=== PATIENT | female | born 1990 | race Caucasian/White ===

== ENCOUNTER 2020-03-22 10:10 | Outpatient (CLI) | payer OTHER, SELFPAY ==
[2020-03-22 10:30] VITALS: BMI 26.1
[2020-03-22 10:42] VITALS: BP 110/70; PULSE 88
[2020-03-22 10:57] VITALS: BP 0/0; BP 115/71; PULSE 91
[2020-03-22 11:00] VITALS: BP 115/71; RESP 18
== END 2020-03-22 11:05 | disposition home or self-care (01) ==
LOC: OPOB 10:20 → OBGYN 10:26
PROVIDERS: PCP Family Medicine; Visit Provider Family Medicine
DX: O26.899 Other specified pregnancy related conditions, unspecified trimester (principal); Z3A.00 Weeks of gestation of pregnancy not specified; R10.9 Unspecified abdominal pain
CPT/HCPCS: 99211

== ENCOUNTER 2020-03-23 01:20 | Inpatient (IN) | payer OTHER, SELFPAY ==
[2020-03-22 23:45] VITALS: TEMP 36.9
[2020-03-22 23:46] VITALS: BP 152/95; PULSE 92
[2020-03-22 23:49] VITALS: BP 126/75; PULSE 82
[2020-03-23] VITALS (30 sets, daily range): BP systolic 0–193; BP diastolic 0–122; PULSE 67–153; RESP 18; TEMP 36.8–36.9; BMI 26.1
[2020-03-23 01:09] LABS: Actim Prom Positive
[2020-03-23] MEDS: miSOPROStol 100 mcg tablet 25 MCG SUBLINGUAL (01:54)
[2020-03-23 02:06] LABS: Basophils # 0.1 10^3/uL (0.0-0.1); Basophils % 0.3 %; Eosinophils # 0.1 10^3/uL (0.0-0.8); Eosinophils % 0.8 %; Hematocrit 37.4 % (37.0-47.0); Hemoglobin 12.2 g/dL (11.5-15.3); Lymphocytes # 2.5 10^3/uL (0.8-4.8); Lymphocytes % 17.5 %; Mean Corpuscular HGB Conc 32.6 g/dL (30.0-36.0); Mean Corpuscular Hemoglobin 30.8 pg (28.0-34.0); Mean Corpuscular Volume 94.4 fL (81-99); Mean Platelet Volume 9.5 fL (7.4-10.4); Monocytes # 0.9 10^3/uL (0.2-0.9); Monocytes % 6.1 %; Neutrophils # 10.67 10^3/uL (1.8-7.7); Neutrophils % 74.6 %; Nucleated Red Blood Cells % 0 %; Platelet Count 312 10^3/cmm (130-400); Red Blood Count 3.96 10^6/uL (4.1-5.3); Red Cell Distribution Width 14.1 % (12.1-15.1); White Blood Count 14.3 10^3/uL (4.0-10.0)
[2020-03-23] MEDS: lactated ringers 1,000 ML 999 ML IV (02:42)
--- NOTE | 2020-03-23 05:33 | P.PCNOB_ITS ---
Delivery Note: Date of delivery: March 23, 2020 Pre-Delivery Course: The patient is a 39-week 1 female who presented to the hospital with contractions. Her been unremarkable. Her blood type is a positive. She is rubella immune. She was GBS negative. Her glucose screen was negative. Delivery: DELIVERY: The patient progressed to complete without difficulty. She delivered a male with a weight of 7 pounds 6 ounces with Apgars of 8, 9. The baby was delivered from the JOAN position. The baby's mouth and nose were suctioned at the site of the perineum. The baby was then completely delivered and placed on the mother's abdomen. The cord was then clamped and cut. There was no nuchal cord. There was no meconium. The placenta and 3 vessel cord were delivered intact shortly thereafter. The perineum and vaginal vault were carefully examined. No lacerations were noted. Both the mother and the baby were in stable condition. A&P Assessment and plan (1) Spontaneous vaginal delivery: Status: Acute (2) 40 weeks gestation of : Status: Acute Coding Level of Care Code Acute Travel Services Professional for Chg Fwd Diagnoses Spontaneous vaginal delivery O80 40 weeks gestation of Z3A.40
--- NOTE | 2020-03-23 09:04 | PC.NURSE ---
Patient ambulated to room 202-2 with baby in crib. Patient did well. Proud parent pack explained and patient and guest oriented to .
[2020-03-23] MEDS: benzocaine-menthol 78 gm Canister 1 SPRAY TOPICAL (09:39)
[2020-03-23] MEDS: docusate sodium 100 mg Capsule PO ×2 (09:40→21:15)
[2020-03-23] MEDS: prenatal vitamin Capsule 1 CAP PO (09:40)
[2020-03-23] MEDS: lanolin oint 7 gm 1 APPLIC TOPICAL (09:40)
[2020-03-23 18:18] LABS: Hematocrit 33.7 % (37.0-47.0); Hemoglobin 11.1 g/dL (11.5-15.3); Mean Corpuscular HGB Conc 32.9 g/dL (30.0-36.0); Mean Corpuscular Hemoglobin 31.2 pg (28.0-34.0); Mean Corpuscular Volume 94.7 fL (81-99); Mean Platelet Volume 9.8 fL (7.4-10.4); Platelet Count 273 10^3/cmm (130-400); Red Blood Count 3.56 10^6/uL (4.1-5.3); Red Cell Distribution Width 14.4 % (12.1-15.1); White Blood Count 18.7 10^3/uL (4.0-10.0)
[2020-03-24 04:50] VITALS: BP 111/74; PULSE 83; RESP 18; TEMP 36.6
[2020-03-24 11:00] VITALS: BP 114/80; PULSE 85; RESP 18; TEMP 36.7
[2020-03-24] MEDS: prenatal vitamin Capsule 1 CAP PO (11:31)
[2020-03-24] MEDS: docusate sodium 100 mg Capsule PO (11:32)
[2020-03-24 13:30] VITALS: BP 112/80; PULSE 86; RESP 18; TEMP 36.6; O2SAT 99
--- NOTE | 2020-03-24 16:08 | P.DS_ITS ---
Discharge Providers BLOW MOLD MACHINE OPERATOR Date of Admission: 03/23/20 01:20 Date of Discharge: 03/24/20 Attending Provider at Admission: Erasmo Lino MD Attending Provider at Discharge: Erasmo Lino MD Primary Care Provider: Erasmo Lino MD Diagnoses at Discharge Discharge Diagnosis (1) 40 weeks gestation of : Status: Acute (2) Spontaneous vaginal delivery: Status: Acute Reason for Visit Reason for Visit: CONTRACTIONS Hospital Course Hospital Course: The patient presented to the hospital complaining that her membranes had ruptured shortly prior to arriving at the hospital. She was given Cytotec 25 mcg x 1. She also was noted to have a 4 bag which was ruptured as well. She then progressed to complete without difficulty. The delivery of her was unremarkable. Please see the delivery note for details. She did have a large second-degree tear. Her course was also unremarkable. Her bleeding was within normal limits. Her pain was well controlled. She breast-fed well. There were no concerns. Information Peripartum Data: Infant Delivery Method: Vaginal Physical Exam Narrative: EXAM NARRATIVE: The patient is alert. She appears comfortable. Her heart has a regular rate and rhythm with no murmurs appreciated. Lungs are clear to auscultation bilaterally. Her fundus is firm and below the umbilicus. Discharge Data Data Completed and Pending: Labs from last 24 hours 03/23/20 17:45 WBC 18.7 H RBC 3.56 L Hgb 11.1 L Hct 33.7 L MCV 94.7 MCH 31.2 MCHC 32.9 RDW 14.4 Plt Count 273 MPV 9.8 Vitals: Last Vital Signs Temp 97.9 F 03/24/20 04:50 Pulse 83 03/24/20 04:50 Resp 18 03/24/20 04:50 BP 111/74 03/24/20 04:50 Discharge Plan Discharge Patient Disposition: Home Condition: Stable Prescriptions: New ibuprofen 800 mg Tablet 800 mg PO TID Qty: 45 RF: 0 Continued + DHA 28 mg iron- 975 mcg-200 mg Combo Pack 1 pkg PO DAILY RF: 0 Referrals: Erasmo Lino MD [Primary Care Provider] - 6 Weeks Discharge Diet: Usual diet Discharge Activity: Limit activity as instructed Patient Instructions: OB Discharge Report, OB Food/Drug Interaction Guide, OB Care at Home, OB Vaginal Deliveries Discharge Attestations BLOW MOLD MACHINE OPERATOR Time Spent in Discharge Care*: less than 30 min Coding Level of Care Code Acute Chemical Sprayer for Chg Fwd Diagnoses 40 weeks gestation of Z3A.40 Spontaneous vaginal delivery O80
== END 2020-03-24 13:45 | disposition home or self-care (01) | DRG 805 ==
LOC: OPOB 01:57 → OBGYN 01:57
PROVIDERS: Admitting Provider Family Medicine; PCP Family Medicine; Visit Provider Family Medicine
DX: O70.1 Second degree perineal laceration during delivery (principal); G93.5 Compression of brain; Z37.0 Single live birth; Z3A.40 40 weeks gestation of pregnancy; Z87.440 Personal history of urinary (tract) infections; O75.89 Other specified complications of labor and delivery
CPT/HCPCS: 12345; 36415; 59025; 59409; 84112; 85025; 85027; 98960; 99211

== ENCOUNTER 2021-12-09 16:55 | Inpatient (IN) | payer OTHER, SELFPAY ==
[2021-12-09] VITALS (32 sets, daily range): BP systolic 104–125; BP diastolic 53–83; PULSE 71–96; RESP 15–20; TEMP 36–36.8; BMI 23.6
[2021-12-09 14:06] LABS: Basophils % 0.2 %; Eosinophils # 0.1 10^3/uL (0.0-0.8); Eosinophils % 0.5 %; Hematocrit 37.6 % (37.0-47.0); Hemoglobin 12.5 g/dL (11.5-15.3); Lymphocytes # 2.8 10^3/uL (0.8-4.8); Lymphocytes % 22.2 %; Mean Corpuscular HGB Conc 33.2 g/dL (30.0-36.0); Mean Corpuscular Hemoglobin 31.7 pg (28.0-34.0); Mean Corpuscular Volume 95.4 fl (81-99); Mean Platelet Volume 9.6 fL (7.4-10.4); Monocytes # 0.9 10^3/uL (0.2-0.9); Neutrophils % 69.4 %; Nucleated Red Blood Cells % 0 %; Platelet Count 386 10^3/cmm (130-400); Red Blood Count 3.94 10^6/uL (4.1-5.3); Red Cell Distribution Width 13.9 % (12.1-15.1); White Blood Count 12.4 10^3/uL (4.0-10.0)
[2021-12-09] MEDS: oxytocin 30 UNIT/500 ML BAG 600 UNIT IV (19:32)
[2021-12-09] MEDS: dextrose 5%-lactated ringers 1,000 ML 125 ML IV (19:32)
[2021-12-09] MEDS: lidocaine 2% INJ 20 mL INJECTION (19:44)
--- NOTE | 2021-12-09 20:00 | PM.OPHPUD ---
Labor & Delivery H&P Update Date of Procedure: December 09, 2021 Date H&P Performed: 12/04/21 Changes to previous documentation: Her cervix was 4 cm dilated upon arrival Admission Diagnosis: 31-year-old 2 para 1-0-0-1 at 38 weeks estimated gestational age in active labor Preop diagnosis: IUP Other information: The patient has had an unremarkable . Her blood type is a positive. Her antibody screen was negative. Her GBS status is negative. The remainder of her labs are within normal limits. She has had no complications during her . She is having contractions intermittently over the past day. She arrived for further evaluation to see if she is in labor.
--- NOTE | 2021-12-09 20:16 | PM.DELIVERY ---
Delivery Note: Date of delivery: December 09, 2021 Pre-delivery diagnoses: 31-year-old 2 para 1-0-0-1 at 38 weeks estimated gestational age in active labor Post-delivery diagnoses: Status post vaginal delivery Delivering Physician: Erasmo Lino Estimated blood loss (mL): 150 Pre-Delivery Course: The patient presented to the hospital in active labor. She progressed to 7 cm and had an amniotomy performed. She then progressed to complete without difficulty. Delivery: DELIVERY: The patient progressed to complete without difficulty. She delivered a female with a weight of 8 pounds 3 ounces with Apgars of 8, 9. The baby was delivered from the JOAN position and placed on the mother's abdomen. The cord was then clamped and cut. There was no nuchal cord. There was no meconium. The placenta and 3 vessel cord were delivered intact shortly thereafter. The perineum and vaginal vault were carefully examined. A second-degree posterior just right of the midline laceration was noted. Repaired with 3-0 Vicryl in the usual fashion. Both the mother and the baby were in stable condition. Post-Delivery Status: Good A&P Assessment and plan (1) 38 weeks gestation of : Status: Acute (2) Spontaneous vaginal delivery: Status: Acute Coding Level of Care Code Acute High School Foreign Language Tutor for Chg Fwd Diagnoses 38 weeks gestation of Z3A.38 Spontaneous vaginal delivery O80
[2021-12-09] MEDS: HYDROcodone-acetaminophen 5-325 mg Tablet PO (20:47)
[2021-12-09] MEDS: ibuprofen 800 mg tablet PO (20:47)
[2021-12-09] MEDS: lanolin oint 7 gm 1 APPLIC TOPICAL (20:48)
[2021-12-09] MEDS: benzocaine-menthol 78 gm Canister 1 SPRAY TOPICAL (20:48)
[2021-12-10] VITALS (9 sets, daily range): BP systolic 108–119; BP diastolic 55–62; PULSE 66–89; RESP 16; TEMP 36.6
--- NOTE | 2021-12-10 07:24 | PM.OBGYDC ---
Discharge Providers LINOLEUM LAYER APPRENTICE Date of Admission: 12/09/21 16:55 Date of Discharge: 12/10/21 Attending Provider at Admission: Erasmo Lino MD Attending Provider at Discharge: Erasmo Lino MD Primary Care Provider: Erasmo Lino MD Diagnoses at Discharge Discharge Diagnosis (1) 38 weeks gestation of : Status: Acute (2) Spontaneous vaginal delivery: Status: Acute Reason for Visit Reason for Visit: Abdominal pain Hospital Course Hospital Course The patient presented to the hospital in active labor. An amniotomy was performed. She progressed to complete and had an unremarkable delivery of a healthy-appearing female infant. Her course has been unremarkable. She is breast-feeding well. Her pain has been well controlled. Her bleeding has been within normal limits. Information Peripartum Data: Infant Delivery Method: Vaginal Physical Exam Narrative: The patient is alert. She appears comfortable. Her heart has a regular rate and rhythm with no murmurs appreciated. Lungs are clear to auscultation bilaterally. Her fundus is firm and below the umbilicus. Discharge Data Studies Completed and Pending Pending at discharge Category Date Time Status Hemagram Timed Lab 12/10/21 08:15 Uncollected Laboratory Results WBC 12.4 10^3/uL (4.0-10.0) H 12/09/21 13:45 RBC 3.94 10^6/uL (4.1-5.3) L 12/09/21 13:45 Hgb 12.5 g/dL (11.5-15.3) 12/09/21 13:45 Hct 37.6 % (37.0-47.0) 12/09/21 13:45 MCV 95.4 fl (81-99) 12/09/21 13:45 MCH 31.7 pg (28.0-34.0) 12/09/21 13:45 MCHC 33.2 g/dL (30.0-36.0) 12/09/21 13:45 RDW 13.9 % (12.1-15.1) 12/09/21 13:45 Plt Count 386 10^3/cmm (130-400) 12/09/21 13:45 MPV 9.6 fL (7.4-10.4) 12/09/21 13:45 Neut % (Auto) 69.4 % 12/09/21 13:45 Lymph % (Auto) 22.2 % 12/09/21 13:45 [place] % (Auto) 7.0 % 12/09/21 13:45 Eos % (Auto) 0.5 % 12/09/21 13:45 Baso % (Auto) 0.2 % 12/09/21 13:45 Neut # (Auto) 8.60 10^3/uL (1.8-7.7) H 12/09/21 13:45 Lymph # (Auto) 2.8 10^3/uL (0.8-4.8) 12/09/21 13:45 [place] # (Auto) 0.9 10^3/uL (0.2-0.9) 12/09/21 13:45 Eos # (Auto) 0.1 10^3/uL (0.0-0.8) 12/09/21 13:45 Baso # (Auto) 0.0 10^3/uL (0.0-0.1) 12/09/21 13:45 Nucleated RBC % (auto) 0 % 12/09/21 13:45 Nucleated RBCs # 0.0 /100WBC 12/09/21 13:45 Vitals Last Vital Signs Temp 97.9 F 12/10/21 05:50 Pulse 69 12/10/21 05:28 Resp 17 12/09/21 20:37 BP 114/59 12/10/21 05:28 Discharge Plan Discharge Patient Disposition: Home Condition: Stable Prescriptions: Continued + DHA 28 mg iron- 975 mcg-200 mg Combo Pack 1 pkg PO DAILY 0RF ibuprofen 800 mg Tablet 800 mg PO TID Qty: 45 0RF Discharge Orders: Discharge Order (Routine); Ordered 12/10/21 Ordered By: Erasmo Lino Referrals: Erasmo Lino MD [Primary Care Provider] - 6 Weeks Discharge Diet: Usual diet Discharge Activity: Limit activity as instructed Patient Instructions: Opioid Safety Discharge Attestations LINOLEUM LAYER APPRENTICE Time Spent in Discharge Care*: less than 30 min Coding Level of Care Code Acute Dental Instrument Maker for Chg Fwd Diagnoses 38 weeks gestation of Z3A.38 Spontaneous vaginal delivery O80
[2021-12-10 08:04] LABS: Hematocrit 35.1 % (37.0-47.0); Hemoglobin 11.6 g/dL (11.5-15.3); Mean Corpuscular Volume 93.9 fl (81-99); Mean Platelet Volume 9.5 fL (7.4-10.4); Platelet Count 348 10^3/cmm (130-400); Red Blood Count 3.74 10^6/uL (4.1-5.3); White Blood Count 14.1 10^3/uL (4.0-10.0)
[2021-12-10] MEDS: docusate sodium 100 mg Capsule PO ×2 (08:31→18:24)
[2021-12-10] MEDS: ibuprofen 800 mg tablet PO ×2 (08:31→15:35)
[2021-12-10] MEDS: prenatal vitamin Capsule 1 CAP PO (08:31)
[2021-12-10] MEDS: lanolin oint 7 gm 1 APPLIC TOPICAL (18:28)
== END 2021-12-10 20:06 | disposition home or self-care (01) | DRG 807 ==
LOC: OPOB 16:55 → OBGYN 16:55
PROVIDERS: Admitting Provider Family Medicine; PCP Family Medicine; Visit Provider Family Medicine
DX: O70.1 Second degree perineal laceration during delivery (principal); Z37.0 Single live birth; Z3A.38 38 weeks gestation of pregnancy
CPT/HCPCS: 12345; 36415; 59025; 59409; 85025; 85027; 99211

== ENCOUNTER 2022-08-19 06:38 | Day surgery (SDC) | payer OTHER, BC, MEDICAID, SELFPAY ==
[2022-08-18 13:22] VITALS: BMI 21.4
[2022-08-19] VITALS (7 sets, daily range): BP systolic 108–132; BP diastolic 71–90; PULSE 61–97; RESP 16–18; TEMP 36.1–36.3; O2SAT 94–97
[2022-08-19 07:07] LABS: OR HCG Qualitative Urine Negative (Negative)
[2022-08-19] MEDS: sodium chloride 0.9% 1,000 ML 30 ML IV (07:15)
--- NOTE | 2022-08-19 07:43 | ANES.PREANE2 ---
Pre-Anesthetic Assessment Height/Weight: Height 1.68 m Weight 60.328 kg Temp Pulse Resp BP Pulse Ox O2 Del Method 97.3 F L 87 18 132/79 96 08/19/22 06:59 08/19/22 06:59 08/19/22 06:59 08/19/22 06:59 08/19/22 06:59 08/19/22 06:59 Preop Diagnosis: IUP Operation Date: 08/19/22 08:20 Proposed Procedures p BMT,BIlateral Eustachian Tube Ballon Dilation H69.83(Bilateral) - Erasmo Swenson MD s Eustachian Tube Dilation(Bilateral) - Erasmo Swenson MD Familial anesthetic complications: none Was Beta Kamar taken within 24 hours: N/A Was Clonidine taken within 24 hours: N/A Last intake: Intake Last Liquid Date 08/18/22 Last Liquid Time 20:00 Last Solid Date 08/18/22 Last Solid Time 20:00 Social No alcohol and No tobacco Exam alert, oriented x 3, clear to auscultation bilaterally and regular rate & rhythm Airway Mallampati: Class I Dentition: full History/ROS No significant complaints Anesthetic Plan ASA status: 1 Anesthesia: General Risk of > 500 ml blood loss (7ml/kg in children): No Other Pertinent Information Informed patient she does not need to discard breast milk after anesthesia Medications/Allergies Home Medications Medication Instructions Recorded Confirmed Last Taken Type vits,calcium 91-iron 28 1 pkg PO DAILY 03/23/20 08/18/22 08/18/22 History mg-folic 975 mcg-dha 200 mg oral pack ( + DHA) ibuprofen 800 mg tablet 800 mg PO TID #45 tabs 03/24/20 08/19/22 08/17/22 Rx Allergies Allergy/AdvReac Type Severity Reaction Status Date / Time No Known Allergies Allergy Verified 08/19/22 07:08 PFSH Anesthesia Female Reproductive History Date of last menstrual period: 08/06/22 Data Anesthesia Cardiac Studies: No Data to Display
--- NOTE | 2022-08-19 09:21 | W.PM.OPSUD ---
Surgery/Procedure H&P Update DATE OF PROCEDURE: August 19, 2022 DATE H&P PERFORMED: 08/25/22 PREOP DIAGNOSIS: IUP PRIMARY INDICATION FOR PROCEDURE: Chronic eustachian tube dysfunction PLANNED PROCEDURE: Operation Date: 08/19/22 08:20 Proposed Procedures p BMT,BIlateral Eustachian Tube Ballon Dilation H69.83(Bilateral) - Erasmo Swenson MD s Eustachian Tube Dilation(Bilateral) - Erasmo Swenson MD
[2022-08-19] MEDS: lidocaine 4% PF 5 mL INJ INJECTION (09:38)
[2022-08-19] MEDS: oxymetazoline 0.05% Nasal Spray 15 mL 1 SPRAY NOSTRIL-B (09:45)
[2022-08-19] MEDS: ofloxacin 0.3% Op Soln 5 mL Btl 3 DROP EAR-BOTH (09:45)
--- NOTE | 2022-08-19 10:21 | PM.OP ---
Operative Report Date of procedure: August 19, 2022 Pre-op diagnosis: Chronic Eustachian Tube Dysfunction IUP Post-op diagnosis: same Post-op diagnosis: Same Post-op findings: Bilateral tympanic membrane tympanosclerosis O/W Normal bilateral ear and eustachian tube exam Procedure done: Bilateral myringotomy with tympanostomy tube placement Bilateral eustachian tube balloon dilation Implants: Bilateral tympanostomy tubes Specimens removed/disposition: None Pathology: none sent Surgeon: Erasmo Swenson Pamphlet Distributor: Abby Omer Anesthesia: General Estimated blood loss (mL): 1 IV fluids (mL): 1,300 Complications: None Findings: Bilateral tympanic membrane tympanosclerosis and retraction O/W Normal bilateral ear exam Condition: stable Disposition: PACU Brief History: The patient is a 31-year-old white female with chronic eustachian tube dysfunction who desires surgical intervention. Procedure: The patient was identified in the preoperative holding area and was taken to the operating where she was placed on the operating table in the supine position. Anesthesia was obtained with general endotracheal anesthesia. The patient's head was then turned to the right exposing the left ear to the operating surgeon. An aural speculum was placed in the patient's left ear and the ear was inspected with the findings previously noted. A radial incision was made in the anterior-inferior quadrant of the patient's left tympanic membrane angioplasty was placed in the myringotomy site with a pair of alligator forceps. Once the tube was in the proper position the left ear was filled with Ciprodex otic suspension followed by cottonball. Attention was then turned to the right ear where a similar procedure was performed. Prior to starting the myringotomy, Afrin and lidocaine soaked pledgets were placed in the patient's nose bilaterally which were now removed. A 0 degree Lentz surgical telescope with the attached video camera system was then used to inspect the patient's nose bilaterally and attention was turned to the right nasal cavity. The Acclarent eustachian tube balloon was then passed into the patient's right eustachian tube and the balloon was inflated to 12 jose ramon for 2 minutes. Once this was accomplished the balloon was removed from the right eustachian tube and attention was turned to the left eustachian tube where a similar procedure performed. At this point the procedure was terminated and control of the patient was returned to anesthesia where she underwent an uneventful reversal of anesthesia extubation and was taken to the recovery in stable condition. There were no operative or anesthetic complications
[2022-08-19] MEDS: HYDROcodone-acetaminophen 5-325 mg Tablet 1 TAB PO (11:10)
--- NOTE | 2022-08-19 16:08 | ANE.PACU2 ---
Inpatient post-anesthesia follow up: Airway intact: Yes Vital signs: Temperature 97 F Pulse Rate 63 Respiratory Rate 18 Blood Pressure 108/71 Pulse Oximetry 97 Oxygen Delivery Me thod Room Air Oxygen Flow Rate Fraction of Inspir ed Oxygen Hydration adequate: Yes Nausea and vomiting: No Pain level: 1 Mental status: Baseline
== END 2022-08-19 12:05 | disposition home or self-care (01) ==
PROVIDERS: Anesthesiology; PCP Family Medicine; Visit Provider Specialist
PROC: (CPT 69420; principal; 2022-08-19 08:20)
PROC: (CPT 69436; 2022-08-19 08:20)
DX: H69.93 Unspecified Eustachian tube disorder, bilateral (principal); H74.03 Tympanosclerosis, bilateral
CPT/HCPCS: 69436; 69706; 12345; 81025; 84703; C9745; J1100; J2310; J2405; J2704; J2710; J3010; J3490; J7030

== ENCOUNTER → 2023-05-10 11:47 | Outpatient (BNVA) | payer OTHER, SELFPAY | PROVIDERS: PCP Family Medicine; Visit Provider Emergency Medicine | DX: R30.0 Dysuria (principal) | CPT/HCPCS: 81000 ==

== ENCOUNTER → 2023-11-13 09:46 | Outpatient (BNVA) | payer OTHER, SELFPAY | PROVIDERS: PCP Family Medicine; Visit Provider Family Medicine Adult Medicine | DX: R39.9 Unspecified symptoms and signs involving the genitourinary system (principal) | CPT/HCPCS: 81000 ==

== ENCOUNTER 2025-07-11 15:55 | Outpatient (CLI) | payer OTHER, SELFPAY ==
--- NOTE | 2025-07-11 16:00 | MR_ITS ---
WS: [id number] MRI BRAIN WITHOUT CONTRAST HISTORY: G43.109 - Migraine with aura, not intractable, without st... COMPARISON: CT head 04/09/2017 TECHNIQUE: Diffusion imaging, multiplanar T1, T2 and FLAIR imaging obtained. No evidence for acute infarct or hemorrhage. Pate-white matter differentiation is normal. No prior infarcts. Tiny focus of increased T2 signal posterior LEFT parietal lobe is nonspecific. Otherwise no small vessel changes. No midline shift or mass effect. Ventricles and extra-axial spaces are normal. Very slight ectopia the cerebellar tonsils. No Chiari malformation. No hydrocephalus. Brainstem is normally positioned. Dural venous sinuses and [place] demonstrate no abnormality on this unenhanced studies. Paranasal sinuses: Mucoperiosteal thickening and heterogeneous secretions in the RIGHT maxillary sinus. Small amount of mucoperiosteal thickening in the anterior RIGHT ethmoid air cells. Mastoid air cells: Bilateral small mastoid air cell effusions, LEFT greater than RIGHT. Calvarium and scalp: Intact. MR/MR head wo con* [id number] IMPRESSION: 1. No acute infarcts or prior remote infarct. 2. Very minimal ectopia of the cerebellar tonsils but no Chiari malformation. 3. RIGHT maxillary sinusitis and mild mucoperiosteal disease in the RIGHT ethm oid air cells. 4. Small bilateral mastoid air cell effusions. 5. No significant white matter changes.
== END 2025-07-11 15:56 | disposition home or self-care (01) ==
LOC: RAD 15:56
PROVIDERS: PCP Family Medicine; Visit Provider Specialist
DX: G43.109 Migraine with aura, not intractable, without status migrainosus (principal); J34.89 Other specified disorders of nose and nasal sinuses
CPT/HCPCS: 70551